=== PATIENT | female | born 2000 | race Two or more races ===

== ENCOUNTER 2019-02-18 22:53 | Emergency (ER) | payer SELFPAY ==
[~2019-02-18] VITALS: Ht 142.2 cm; Wt 52.2 kg
[2019-02-18 23:28] LABS: BILIRUBIN,URINE NEGATIVE (NEG); CLARITY,URINE CLEAR; COLOR,URINE YELLOW; NITRITE,URINE NEGATIVE (NEG); PROTEIN,URINE NEGATIVE (NEG-TRACE); UROBILINOGEN,URINE 0.2 mg/dL (0.2 mg/dL)
[2019-02-18 23:41] LABS: RBC,URINE OCC /HPF (0-2); SQUAMOUS EPITHELIAL CELL,UR MOD /LPF
[2019-02-18 23:42] LABS: BACTERIA,URINE FEW /HPF (0-FEW)
--- NOTE | 2019-02-18 23:44 | PHYS DOC ---
Adult General Chief Complaint Chief Complaint: ABDOMINAL PAIN HPI HPI Patient is a 18 year old patient [place] speaking female who presents with her parents with complaining of abdominal pain. Patient complaining of intermittent episodes of right lower quadrant and suprapubic area for the last 4 days that usually last for couple hours and to several times a day and getting worse with movement. Patient rated her pain 10 over 10 and denies nausea, vomiting, anorexia, fever and chills, urinary symptoms, diarrhea and constipation, history of the same pain, vaginal bleeding or discharge. Patient states she took Tylenol without improvement of her pain. Review of Systems Review of Systems Constitutional: Denies fever or chills [] Eyes: Denies change in visual acuity, redness, or eye pain [] HENT: Denies nasal congestion or sore throat [] Respiratory: Denies cough or shortness of breath [] Cardiovascular: No additional information not addressed in HPI [] GI: Reports abdominal pain, denies nausea, vomiting, bloody stools or diarrhea [] : Denies dysuria or hematuria [] Musculoskeletal: Denies back pain or joint pain [] Integument: Denies rash or skin lesions [] Neurologic: Denies headache, focal weakness or sensory changes [] Endocrine: Denies polyuria or polydipsia [] All other systems were reviewed and found to be within normal limits, except as documented in this note. Allergies Allergies Allergies Coded Allergies Type Severity Reaction Last Updated Verified No Known Drug Allergies 02/18/19 No Physical Exam Physical Exam Constitutional: Well developed, well nourished, mild distress, non-toxic appearance. [] HENT: Normocephalic, atraumatic. Eyes: PERRLA, EOMI, conjunctiva normal, no discharge. [] Neck: Normal range of motion, no tenderness, supple, no stridor. [] Cardiovascular:Heart rate regular rhythm, no murmur [] Lungs & Thorax: Bilateral breath sounds clear to auscultation [] Abdomen: Bowel sounds normal, soft, no tenderness, no masses, no pulsatile masses. [] Skin: Warm, dry, no erythema, no rash. [] Back: No tenderness, no CVA tenderness. [] Extremities: No tenderness, no cyanosis, no clubbing, ROM intact, no edema. [] Neurologic: Alert and oriented X 3, no focal deficits noted. [] Psychologic: Affect normal, judgement normal, mood normal. [] Current Patient Data Vital Signs Vital Signs Date Time Temp Pulse Resp B/P (MAP) Pulse Ox O2 Delivery O2 Flow Rate FiO2 02/18/19 23:54 98.3 78 18 116/67 (83) 98 Room Air 98.3 Lab Values Laboratory Tests Test 02/18/19 23:08 02/18/19 23:15 POC Urine HCG, Qualitative Hcg negative (Negative) Urine Collection Type Unknown Urine Color Yellow Urine Clarity Clear Urine pH 6.0 Urine Specific [place] >=1.030 Urine Protein Negative mg/dL (NEG-TRACE) Urine Glucose (UA) Negative mg/dL (NEG) Urine Ketones (Stick) Negative mg/dL (NEG) Urine Blood Negative (NEG) Urine Nitrite Negative (NEG) Urine Bilirubin Negative (NEG) Urine Urobilinogen Dipstick 0.2 mg/dL (0.2 mg/dL) Urine Leukocyte Esterase Negative (NEG) Urine RBC Occ /HPF (0-2) Urine WBC 1-4 /HPF (0-4) Urine Squamous Epithelial Cells Mod /LPF Urine Bacteria Few /HPF (0-FEW) Urine Mucus Mod /LPF EKG EKG [] Radiology/Procedures Radiology/Procedures [] Course & Med Decision Making Course & Med Decision Making Pertinent Labs reviewed. (See chart for details) Evaluation of patient in ER showed 18-year-old female patient with complaining of intermittent episodes of lower abdominal pain for 4 days. Patient had unremarkable physical exam. UA showed UTI with negative test. Plan to discharge patient home with diagnosis of UTI and abdominal pain. I've spoken with the patient and/or caregivers. I've explained the patient's condition, diagnosis and treatment plan based on information available to me at this time. I've answered the patient's and/or caregivers questions and addressed any concerns. The patient and/or caregivers have a good understanding the patient's diagnosis, condition and treatment plan as can be expected at this point. Vital signs have been stabilized. The patient's condition is stable for discharge from the emergency department. The patient will pursue further outpatient evaluation with her primary care provider or other designated consulting physician as outlined in the discharge instructions. Patient and/or caregivers are agreeable to this plan of care and follow-up instructions have been explained in detail. The patient and/or caregivers have received these instructions in written format and expressed understanding of these discharge instructions. The patient and her caregivers are aware that if any significant change in condition or worsening of symptoms should prompt him to immediately return to this of the closest emergency department. If an emergent department is not readily available I would encourage him to call 911. Sarika Disclaimer Dragon Disclaimer This electronic medical record was generated, in whole or in part, using a voice recognition dictation system. Departure Departure Impression: Primary Impression: Urinary tract infection Additional Impression: Suprapubic pain Disposition: HOME, SELF-CARE (at 0004) Condition: STABLE Patient Instructions: Abdominal Pain (Nonspecific), Urinary Tract Infection Additional Instructions: Drink plenty of liquids Follow-up with your primary care physician in 3-5 days Return to ER if not getting better Scripts Naproxen (NAPROSYN) 500 Mg Tablet 1 TAB PO BID for pain, #14 TAB Prov: WARREN MIX MD 02/19/19 Sulfamethoxazole/Trimethoprim (BACTRIM DS TABLET) 1 Each Tablet 1 TAB PO BID for infection, #6 TAB Prov: WARREN MIX MD 02/19/19 Problem Qualifiers Primary Impression: Urinary tract infection Urinary tract infection type: site unspecified Hematuria presence: without hematuria Qualified Codes: N39.0 - Urinary tract infection, site not specified WARREN MIX MD Feb 18, 2019 23:44
[2019-02-18 23:54] VITALS: BP 116/67
[2019-02-19] MEDS ORDERED: SULF1TAB24 PO (00:09)
[2019-02-19] MEDS ORDERED: NAPR-683 PO (00:09)
== END 2019-02-19 02:18 | disposition home or self-care (01) ==
LOC: ER 22:53
DX: N39.0 Urinary tract infection, site not specified (principal)
CPT/HCPCS: 81001; 81025; 99283

== ENCOUNTER → 2019-05-10 | Outpatient (CLI) | payer SELFPAY ==
[~2019-05-10] MED LIST: NAPR-683 PO; SULF1TAB24 PO
--- NOTE | 2019-05-10 13:57 | RAD ---
Ultrasound-guided core biopsy of the left breast Indications: Solid nodule of the 7:00 position of the left breast seen on outside study. Procedure: The procedure and possible complications including bleeding and infection were explained. The patient provided both verbal and written consent. A timeout was performed which confirmed the name of the patient and date of and the type of procedure and the side of the procedure. Allergies to medications were reviewed. Note - all this was explained and discussed and reviewed with the patient with a telephone spanish interpreter prior to the procedure. The patient does not speak Yoruba. The patient's questions were answered. Sonography of the left breast was performed today which demonstrates a 28 mm solid lobulated hypoechoic nodule at the 7:00 position of the left breast. An appropriate skin jenny was placed on the left breast overlying the nodule. The left breast was prepped and draped in the usual sterile fashion. A total of 5 cc of 1% lidocaine was utilized for local anesthesia. Using sterile technique and ultrasound guidance, a small skin neck was made and a total of 6 separate 18-gauge Temno core biopsy samples of the solid nodule were obtained. Sonographic spot images were obtained. Following this, a breast biopsy S marker clip was placed along the edge of the nodule using ultrasound guidance. A sonographic spot image demonstrates the biopsy clip adjacent to the nodule. Manual pressure was applied for 5 minutes and hemostasis was deemed adequate. Sterile Band-Aid was applied to the biopsy site. The patient tolerated the procedure well without complication. The biopsy samples were placed into formalin and sent to pathology for further evaluation. Follow-up will be with the patient's referring physician. IMPRESSION: Ultrasound-guided core biopsy sampling of the nodule of the left breast was performed without complication. Pathology results pending. 2-VIEW 2-D DIAGNOSTIC MAMMOGRAM OF THE LEFT BREAST FINDINGS: An S biopsy marker clip is seen within the posterior medial inferior aspect of the left breast at the 7:00 position. IMPRESSION: Biopsy clip placement mammogram of the left breast was performed.
--- NOTE | 2019-05-11 13:07 | PATHOLOGY ---
[facility] Accession Number: [id number] . 01 Material submitted: . breast - LEFT BREAST TISSUE 700. Modifiers: left, 7:00 . 01 Clinical history: . None provided . 02 Diagnosis: Breast tissue, left breast mass 7:00 needle biopsies: - Dense fibrosis. (JPM:[facility] 05/11/2019) QTP 05/11/2019 0930 Local . 02 Comment: Sections of the left breast 7:00 needle biopsy reveal small segments of breast tissue showing dense fibrosis. There is no evidence of malignancy. I am not sure if the biopsy is truly site safety representative of the lesion. Please correlated with mammographic findings. (JPM:[facility] 05/11/2019) . 02 Electronically signed: . Luiz Gutierrez MD, Pathologist NPI- [id number] . 01 Gross description: . Received in formalin labeled "Maribell Liang, left breast 7:00," are multiple fragments of needle cores of cedeño soft tissue measuring 0.5 x 0.1 x 0.1 cm in aggregate dimensions. The specimen is filtered and entirely submitted in cassette A1. Due to the minute nature of the specimen, it may not survive processing. (TSD; 05/10/2019) TOB/TOB 05/10/2019 2252 Local . 02 Pathologist provided ICD-10: N60.32 . 02 CPT . 670301 Specimen Comment: A courtesy copy of this report has been sent to [phone], [phone] Specimen Comment: [id number] Specimen Comment: Report sent to Specimen Comment: A duplicate report has been generated due to demographic updates. Performed at: 01 [facility] [address], [place] [id number] MD Jaycob Silva MD Phone: [phone] Performed at: [address] [id number] MD Luiz Gutierrez MD Phone: [phone]
--- NOTE | 2019-05-16 09:37 | RAD ---
ADDENDUM Addendum: Pathology results came back as dense fibrosis. No evidence of malignancy. Therefore, this most likely represents a benign fibroepithelial lesion or fibrosis in association with fibrocystic change of the breast. As a result, recommend a 6 month follow-up sonogram of the left breast to ensure stability. Pathology results are concordant with the radiology findings. BI-RADS Category 3: Probably Benign. The patient information was entered into the data reminder system with a target due date for the next sonogram of November 09, 2019. DICTATED AND SIGNED BY: URIAH DEWITT MD DATE: 05/12/19 1541 CC: RIKY CAMPO ~ Ultrasound-guided core biopsy of the left breast Indications: Solid nodule of the 7:00 position of the left breast seen on outside study. Procedure: The procedure and possible complications including bleeding and infection were explained. The patient provided both verbal and written consent. A timeout was performed which confirmed the name of the patient and date of and the type of procedure and the side of the procedure. Allergies to medications were reviewed. Note - all this was explained and discussed and reviewed with the patient with a telephone shot core drill operator helper prior to the procedure. The patient does not speak Sinhala. The patient's questions were answered. Sonography of the left breast was performed today which demonstrates a 28 mm solid lobulated hypoechoic nodule at the 7:00 position of the left breast. An appropriate skin jenny was placed on the left breast overlying the nodule. The left breast was prepped and draped in the usual sterile fashion. A total of 5 cc of 1% lidocaine was utilized for local anesthesia. Using sterile technique and ultrasound guidance, a small skin neck was made and a total of 6 separate 18-gauge Temno core biopsy samples of the solid nodule were obtained. Sonographic spot images were obtained. Following this, a breast biopsy S marker clip was placed along the edge of the nodule using ultrasound guidance. A sonographic spot image demonstrates the biopsy clip adjacent to the nodule. Manual pressure was applied for 5 minutes and hemostasis was deemed adequate. Sterile Band-Aid was applied to the biopsy site. The patient tolerated the procedure well without complication. The biopsy samples were placed into formalin and sent to pathology for further evaluation. Follow-up will be with the patient's referring physician. IMPRESSION: Ultrasound-guided core biopsy sampling of the nodule of the left breast was performed without complication. Pathology results pending. 2-VIEW 2-D DIAGNOSTIC MAMMOGRAM OF THE LEFT BREAST FINDINGS: An S biopsy marker clip is seen within the posterior medial inferior aspect of the left breast at the 7:00 position. IMPRESSION: Biopsy clip placement mammogram of the left breast was performed. COLEMAN
== END ==
LOC: US 14:29
PROVIDERS: ATTEND Social Worker
DX: N63.20 Unspecified lump in the left breast, unspecified quadrant (principal); N60.32 Fibrosclerosis of left breast
CPT/HCPCS: 19083; 77065; 88305; C1713; 19081; 76942

== ENCOUNTER 2021-03-29 22:27 | Emergency (ER) | payer SELFPAY ==
[~2021-03-29] VITALS: Ht 154.9 cm; Wt 54.0 kg
--- NOTE | 2021-03-29 23:37 | PHYS DOC ---
Past Medical History Past Medical History: No Pertinent History (BRANDEN BALL [employer] SCHOOL COORDINATOR) Past Surgical History: No Surgical History (BRANDEN BALL [employer] COORDINATOR) Smoking Status: Never Smoker Alcohol Use: None Drug Use: None (BRANDEN BALL APRN) General Adult EDM: Chief Complaint: FEVER HPI: HPI: Patient is a 20 year old female who presents the ED today complaining of sore throat, headache, loss of taste and smell and cough that began 3 days ago. Patient reports being unvaccinated against COVID-19. (BRANDEN BALL [employer] S[employer] COORDINATOR) Review of Systems: Review of Systems: Constitutional: Denies fever or chills. [] Eyes: Denies change in visual acuity. [] HENT: Reports loss of taste and smell. Reports sore throat. Denies nasal congestion Respiratory: Reports cough, denies shortness of breath. [] Cardiovascular: Denies chest pain or edema. [] GI: Denies abdominal pain, nausea, vomiting, bloody stools or diarrhea. [] : Denies dysuria. [] Musculoskeletal: Denies back pain or joint pain. [] Integument: Denies rash. [] Neurologic: Denies headache, focal weakness or sensory changes. [] Psychiatric: Denies depression or anxiety. [] (BRANDEN BALL [employer] S[employer] COORDINATOR) Heart Score: C/O Chest Pain: N/A Risk Factors: Risk Factors: DM, Current or recent (<one month) smoker, HTN, HLP, family history of CAD, obesity. Risk Scores: Score 0 - 3: 2.5% MACE over next 6 weeks - Discharge Home Score 4 - 6: 20.3% MACE over next 6 weeks - Admit for Clinical Observation Score 7 - 10: 72.7% MACE over next 6 weeks - Early Invasive Strategies (BRANDEN BALL [employer] COORDINATOR) Allergies: Allergies: Allergies Coded Allergies Type Severity Reaction Last Updated Verified No Known Drug Allergies 02/18/19 No (BRANDEN BALL [employer] COORDINATOR) Physical Exam: PE: Constitutional: Well developed, well nourished, no acute distress, non-toxic appearance. [] HENT: Normocephalic, atraumatic, bilateral external ears normal, oropharynx moist, no oral exudates, nose normal. [] Eyes: PERRLA, EOMI, conjunctiva normal, no discharge. [] Neck: Normal range of motion, no tenderness, supple, no stridor. [] Cardiovascular:Heart rate regular rhythm, no murmur [] Lungs & Thorax: Bilateral breath sounds clear to auscultation [] Abdomen: Bowel sounds normal, soft, no tenderness, no masses, no pulsatile masses. [] Skin: Warm, dry, no erythema, no rash. [] Back: No tenderness, no CVA tenderness. [] Extremities: No tenderness, no cyanosis, no clubbing, ROM intact, no edema. [] Neurologic: Alert and oriented X 3, normal motor function, normal sensory function, no focal deficits noted. [] Psychologic: Affect normal, judgement normal, mood normal. [] (BRANDEN BALL APRN) Current Patient Data: Vital Signs: Vital Signs Date Time Temp Pulse Resp B/P (MAP) Pulse Ox O2 Delivery O2 Flow Rate FiO2 03/29/21 23:10 98.6 81 18 118/68 (85) 97 98.6 (BRANDEN BALL APRN) EKG: EKG: [] (BRANDEN BALL APRN) Radiology/Procedures: Radiology/Procedures: [] (BRANDEN BALL APRN) Course & Med Decision Making: Course & Med Decision Making Pertinent Labs and Imaging studies reviewed. (See chart for details) This a 20-year-old female patient presented to the ED today with sore throat, headache, loss of taste and smell, symptoms for 3 days. Positive for COVID-19 instructed to quarantine herself for 14 days. Supportive care measures recommended. Follow-up with PCP. Return precautions provided (BRANDEN BALL APRN) Dragon Disclaimer: Dragon Disclaimer: This electronic medical record was generated, in whole or in part, using a voice recognition dictation system. (BRANDEN BALL APRN) Departure Departure Impression: Primary Impression: Lab test positive for detection of COVID-19 virus Additional Impressions: Cough Sore throat Anosmia Disposition: 01 HOME / SELF CARE / HOMELESS Condition: STABLE Referrals: RIKY CAMPO (PCP) follow up in with your doctor in 1 week Patient Instructions: Cough, Adult, [id number], Viral Infections Additional Instructions: You are positive for COVID-19. Please quarantine yourself for 14 days. Follow-up with your own doctor in 1 week. Take Tylenol or Motrin for pain or fever. Come back to the ED at any point symptoms worsen Scripts Dextromethorphan Polistirex (DELSYM) 30 Mg/5 Ml Claudine.er.12h 5 ML PO BID for 12 Days, #120 ML 0 Refills Prov: BRANDEN BALL [employer] COORDINATOR 03/30/21 Attending Signature Attending Signature I have reviewed the PA/CONFORMAL PAD FORMER's note and plan of care. I was available for consultation as needed during the patient's visit in the emergency department. I agree with the clinical impression, plan, and disposition. (NARESH PAEZ DO) BRANDEN BALL APRN Mar 29, 2021 23:36 NARESH PAEZ DO Mar 30, 2021 00:41
[2021-03-30] VITALS: BP 116/66
[2021-03-30] MEDS ORDERED: DEXT30SU19 PO (00:16)
== END 2021-03-30 00:15 | disposition home or self-care (01) ==
LOC: ER 22:27
DX: U07.1 COVID-19 (principal)
CPT/HCPCS: 87426; 99283; U0003

== ENCOUNTER 2021-05-05 20:59 | Emergency (ER) | payer SELFPAY ==
[~2021-05-05] VITALS: Ht 157.5 cm; Wt 61.0 kg
[~2021-05-05 20:59] MED LIST changes: +DEXT30SU19 PO
--- NOTE | 2021-05-05 21:14 | PHYS DOC ---
Past Medical History Past Medical History: No Pertinent History (QUINNBRANDEN Jim SPRING FITTER) Past Surgical History: No Surgical History (QUINNBRANDEN Jim SPRING FITTER) Smoking Status: Never Smoker Alcohol Use: None Drug Use: None (BRANDEN BALL Jim SPRING FITTER) General Adult EDM: Chief Complaint: OVERDOSE HPI: HPI: Presented Patient is a 20 year old to the ED to be evaluated for drug overdose. Patient herself is not giving us any information. EMS states they were called to the scene when they arrived patient was in agonal breathing with percocets next to her. She was given 1 mg of Narcan. She woke up. She is still awake but lethargic. (BRANDEN BALL SPRING FITTER) Review of Systems: Review of Systems: Constitutional: Denies fever or chills. [] Eyes: Denies change in visual acuity. [] HENT: Denies nasal congestion or sore throat. [] Respiratory: Denies cough or shortness of breath. [] Cardiovascular: Denies chest pain or edema. [] GI: Denies abdominal pain, nausea, vomiting, bloody stools or diarrhea. [] : Denies dysuria. [] Musculoskeletal: Denies back pain or joint pain. [] Integument: Denies rash. [] Neurologic: Denies headache, focal weakness or sensory changes. [] Psychiatric: Drug overdose. [] (BRANDEN BALL Jim SPRING FITTER) Heart Score: C/O Chest Pain: N/A Risk Factors: Risk Factors: DM, Current or recent (<one month) smoker, HTN, HLP, family history of CAD, obesity. Risk Scores: Score 0 - 3: 2.5% MACE over next 6 weeks - Discharge Home Score 4 - 6: 20.3% MACE over next 6 weeks - Admit for Clinical Observation Score 7 - 10: 72.7% MACE over next 6 weeks - Early Invasive Strategies (NEISHAVadimBRANDEN Jim SPRING FITTER) Allergies: Allergies: Allergies Coded Allergies Type Severity Reaction Last Updated Verified No Known Drug Allergies 02/18/19 No (QUINNBRANDEN Jim SPRING FITTER) Physical Exam: PE: Constitutional: Lethargic. Well developed, well nourished, no acute distress, non-toxic appearance. [] HENT: Normocephalic, atraumatic, bilateral external ears normal, oropharynx moist, no oral exudates, nose normal. [] Eyes: PERRLA, EOMI, conjunctiva normal, no discharge. [] Neck: Normal range of motion, no tenderness, supple, no stridor. [] Cardiovascular:Heart rate regular rhythm, no murmur [] Lungs & Thorax: Bilateral breath sounds clear to auscultation [] Abdomen: Bowel sounds normal, soft, no tenderness, no masses, no pulsatile masses. [] Skin: Warm, dry, no erythema, no rash. [] Back: No tenderness, no CVA tenderness. [] Extremities: No tenderness, no cyanosis, no clubbing, ROM intact, no edema. [] Neurologic: Alert and oriented X 1-2, normal motor function, normal sensory function, no focal deficits noted. [] Psychologic: quiet not giving us any information. (BRANDEN BALL APRN) EKG: EK interpreted by Dr. Rahman sinus rhythm heart rate 89 no STEMI [] (BRANDEN BALL APRN) Radiology/Procedures: Radiology/Procedures: [] (BRANDEN BALL APRN) Course & Med Decision Making: Course & Med Decision Making Pertinent Labs and Imaging studies reviewed. (See chart for details) This is a 20-year-old female patient presenting to the ED today to be evaluated for drug overdose. Patient was found in agonal breathing by EMS and was given 1 mg of Narcan. She noted to have Percocets around her. She arrives in the ED awake, oriented to self. Not giving us much information. UDS negative. UA was contaminated with stool even before it was sent to lab. CBC with a WBC of 12.3, normal hemoglobin and hematocrit, CMP with glucose of 200, anion gap is normal. EKG is negative, high-sensitivity troponin is normal. Patient received a liter of fluid, currently awake alert and oriented, I found her talking to the boyfriend on the phone. I did speak to the boyfriend who did not seem to want to listen. Mindy from the pat team talk to patient, she refused any with drug use, she was discharged to home. (BRANDEN BALL APRN) Course & Med Decision Making This patient was seen in the ER for likely opioid ingestion/overdose. I was actually present for the discussion with the PAT recruiting team lead and branden, the nurse practitioner. The PAT recruiting team lead reports that the patient denies SI or HI, adamantly. She reports that she does not feel she needs mental health help. She does not wish to speak to them further. She is not rested in any outpatient resources for substance abuse. The patient was awake, alert, ambulatory and conversant at time of her discharge from the hospital. I did hear and witness her vomit several times. She was given Zofran, as ordered by the nurse practitioner. I did request that the nurse practitioner still provide the patient with outpatient resource for help with substance use disorders. I told the nurse practitioner to please explain to the patient that the opiates she had taken may have been laced with fentanyl, and street drugs/illegally obtained opioid medications may lead to and/or permanent disability, it is recommended she stop this. (NIKHIL RAHMAN DO) Dragon Disclaimer: Dragon Disclaimer: This electronic medical record was generated, in whole or in part, using a voice recognition dictation system. (BRANDEN BALL APRN) Departure Departure Impression: Primary Impression: Overdose Qualified Codes: T50.904A - Poisoning by unspecified drugs, medicaments and biological substances, undetermined, initial encounter Disposition: HOME / SELF CARE / HOMELESS Condition: STABLE Referrals: RIKY CAMPO (PCP) follow up with your doctor in one week Patient Instructions: Narcotic Overdose Additional Instructions: You were evaluated in the emergency room for drug overdose. We highly encourage you to consider getting help for drug use. Scripts Ondansetron (ONDANSETRON ODT) 4 Mg Tab.rapdis 1 TAB PO PRN Q6-8HRS, #16 TAB Prov: BRANDEN BALL APRN 05/05/21 BRANDEN BALL APRN May 05, 2021 21:14 NIHKIL RAHMAN DO May 07, 2021 01:57
[2021-05-05] MEDS ORDERED: IV NORMAL SALINE 1000ML BAG 1,000 ML IV SCH (21:15)
[2021-05-05] MEDS ORDERED: ONDANSETRON PF 4 MG/2 ML VIAL. IVP ONE ×3 (21:15→23:45)
[2021-05-05 21:34] LABS: BASO % 0 % (0-3); EOS # 0.1 x10^3/uL (0.0-0.7); EOS % 1 % (0-3); HEMATOCRIT 41.3 % (36.0-47.0); HEMOGLOBIN 13.7 g/dL (12.0-15.5); LYMPH # 3.9 x10^3/uL (1.0-4.8); LYMPH % 32 % (24-48); MEAN CORPUSCULAR HEMOGLOBIN 30 pg (25-35); MEAN CORPUSCULAR HGB CONC 33 g/dL (31-37); MEAN CORPUSCULAR VOLUME 90 fL (79-100); MONO # 0.5 x10^3/uL (0.0-1.1); MONO % 4 % (0-9); NEUT # 7.7 x10^3/uL (1.8-7.7); NEUT % 63 % (31-73); PLATELET COUNT 317 x10^3/uL (140-400); RED BLOOD COUNT 4.62 x10^6/uL (3.50-5.40); RED CELL DISTRIBUTION WIDTH 14.1 % (11.5-14.5); WHITE BLOOD COUNT 12.3 x10^3/uL (4.0-11.0)
[2021-05-05] MEDS ORDERED: METOCLOPRAMIDE HCL 10 MG/2 ML VIAL. IVP ONE (21:45)
[2021-05-05 21:49] LABS: CALCIUM 7.9 mg/dL (8.5-10.1); CREATININE 0.7 mg/dL (0.6-1.0); GFR 105.6; POTASSIUM 3.7 mmol/L (3.5-5.1)
[2021-05-05 21:51] LABS: ACETAMIN < 2.0 mcg/ml (10-30); SALIC 0.8 mg/dL (2.8-20.0)
[2021-05-05 21:52] LABS: ALBUMIN 3.7 g/dL (3.4-5.0); ALBUMIN/GLOBULIN RATIO 0.8 (1.0-1.7); MAGNESIUM 2.2 mg/dL (1.8-2.4); TOTAL BILIRUBIN 0.4 mg/dL (0.2-1.0); TOTAL PROTEIN 8.2 g/dL (6.4-8.2)
[2021-05-05 21:56] LABS: BILIRUBIN,URINE NEGATIVE (NEG); CLARITY,URINE CLOUDY; COLOR,URINE YELLOW; NITRITE,URINE NEGATIVE (NEG); PROTEIN,URINE NEGATIVE (NEG-TRACE)
[2021-05-05 22:03] LABS: BARBITURATES NEG (NEG); BENZODIAZEPINES NEG (NEG); CANNABINOIDS NEG (NEG); COCAINE NEG (NEG); METHADONE NEG (NEG); OPIATES NEG (NEG); PHENCYCLIDINE NEG (NEG)
[2021-05-05 22:05] LABS: AMPHETAMINE/METHAMPHETAMINE NEG (NEG); BACTERIA,URINE MODERATE /HPF (0-FEW)
--- NOTE | 2021-05-05 23:17 | RAD ---
XR CHEST 1V INDICATION: overdose COMPARISON STUDY: None. FINDINGS: Lungs: Normal lung volume. No pulmonary mass or consolidation. The tracheobronchial tree and hilar st ructures are normal. Pleura: No pleural effusion or pneumothorax. Heart and Mediastinum: The cardiomediastinal silhouette is normal. The great vessels of the thorax ar e normal. Bones and Soft Tissues: The bones and soft tissues are within normal limits. IMPRESSION: No acute cardiopulmonary process. Electronically signed by: Elias Gaytan MD (05/05/2021 11:14 PM) [facility]
[2021-05-05] MEDS ORDERED: ONDA4TAB12 PO (23:36)
[2021-05-05 23:41] VITALS: BP 107/66
--- NOTE | 2021-05-06 02:59 | EKG ---
[facility] [address] [place] [id number] Test Date: 2021-05-05 Test Time: 22:00:59 Pat Name: GENESIS VILA Department: Room: Gender: F [employer]: : [id number] Requested By: BRANDEN BALL Order Number: [id number] Reading MD: Measurements Intervals [place] Rate: 89 P: 59 VA: 152 QRS: 3 QRSD: 90 T: 38 QT: 364 QTc: 444 Interpretive Statements SINUS RHYTHM NORMAL ECG RI6.02 No previous ECG available for comparison
== END 2021-05-05 23:53 | disposition home or self-care (01) ==
LOC: ER 20:59
DX: T50.904A Poisoning by unspecified drugs, medicaments and biological substances, undetermined, initial encounter (principal); Y92.89 Other specified places as the place of occurrence of the external cause
CPT/HCPCS: 36415; 71045; 80053; 80307; 80329; 81001; 81025; 83690; 83735; 84484; 85025; 87086; 93005; 96361; 96374; 96375; 99285; J2405; J2765; J7030; G0480